=== PATIENT | female | born 1955 | race Caucasian/White ===

== ENCOUNTER 2020-09-13 12:03 | Inpatient (IN) | payer OTHER ==
[2020-09-13] MEDS ORDERED: SODIUM CHLORIDE IV ONE (13:40)
[2020-09-13] MEDS ORDERED: SODIUM CHLORIDE 1,000 ML IV STA (14:39)
[2020-09-13 16:21] LABS: BASO % 0.2 % (0-2.0); EOS % 1.8 % (0-4.5); HEMATOCRIT 36.2 % (32.4-45.2); HEMOGLOBIN 11.8 GM/dL (10.7-15.3); LYMPH % 8.5 % (8-40); MCH 30.2 pg (25.7-33.7); MCHC 32.6 g/dl (32.0-36.0); MEAN CELL VOLUME 92.7 fl (80-96); MEAN PLT VOLUME 8.7 fl (7.5-11.1); NEUT % 72.5 % (42.8-82.8); PLATELET COUNT 305 K/MM3 (134-434); RBC 3.91 M/mm3 (3.60-5.2); RDW 15.3 % (11.6-15.6); WHITE BLOOD COUNT 11.3 K/mm3 (4.0-10.0)
[2020-09-13 16:28] LABS: INR 1.23 (0.83-1.09); PROTHROMBIN TIME (PATIENT) 14.8 SEC (9.7-13.0)
[2020-09-13 16:31] LABS: ACTIVATED PTT 28.9 SECONDS (25.2-36.5)
[2020-09-13 16:35] LABS: POTASSIUM 3.9 mmol/L (3.5-5.1)
[2020-09-13 16:37] LABS: CALCIUM 9.4 mg/dL (8.5-10.1)
[2020-09-13 16:38] LABS: ALBUMIN 2.4 g/dl (3.4-5.0); BLOOD UREA NITROGEN 13.6 mg/dL (7-18)
[2020-09-13 16:41] LABS: CREATININE 0.9 mg/dL (0.55-1.3)
[2020-09-13 16:43] LABS: BILIRUBIN,TOTAL 0.5 mg/dL (0.2-1); TOT PROT 6.9 g/dl (6.4-8.2)
[2020-09-13 16:53] LABS: URINE APPEARANCE CLEAR; URINE BILIRUBIN NEGATIVE (NEGATIVE); URINE COLOR YELLOW; URINE GLUCOSE (UA) NEGATIVE (NEGATIVE); URINE KETONE NEGATIVE (NEGATIVE); URINE LEUK ESTERASE 1+ (NEGATIVE); URINE NITRITE NEGATIVE (NEGATIVE); URINE PROTEIN NEGATIVE (NEGATIVE); URINE UROBILINOGEN 0.2 mg/dL (0.2-1.0)
[2020-09-13] MEDS ORDERED: PIPERACILLIN/TAZOB 3.375 GM 3.375 GM in DEXTROSE 5%-WATER - 50 ML IVPB ONE (17:18)
[2020-09-13] MEDS ORDERED: PIPERACILLIN/TAZOB 3.375 GM 3.375 GM/50 ML BAG IVPB ONE (17:46)
[2020-09-13 18:13] LABS: EPI CELLS 7.52 /uL (0-25.1); URINE BACTERIA 32.4 /uL (0-1359); URINE RBC 24.6 /uL (0-23.9); URINE WBC 36.2 /uL (0-25.8)
[2020-09-13] MEDS ORDERED: ACETAMINOPHEN INJECTION 100 ML IVPB ONE (18:50)
[2020-09-13] MEDS ORDERED: ACETAMINOPHEN 1000 MG/100 ML VIAL (NON FORMULARY) IVPB ONE (18:50)
[2020-09-13] MEDS ORDERED: VANCOMYCIN 1,000 MG in DEXTROSE 5%-WATER - 250 ML IVPB ONE (19:38)
[2020-09-13] MEDS ORDERED: SODIUM CHLORIDE 1,000 ML IV SCH (19:45)
[2020-09-13] MEDS ORDERED: VANCOMYCIN 1 GRAM (PRE-DOCKED) 1,000 MG/250 ML BAG IVPB ONE (20:12)
[2020-09-14] MEDS ORDERED: PIPERACILLIN/TAZOB 3.375 GM 3.375 GM/50 ML BAG IVPB ONE (03:41)
[2020-09-14] MEDS: PIPERACILLIN/TAZOB 3.375 GM 3.375 GM in DEXTROSE 5%-WATER - 50 ML IVPB SCH ×3 (03:51→12:07)
[2020-09-14 06:54] LABS: BASO % 0.2 % (0-2.0); EOS % 2.8 % (0-4.5); HEMATOCRIT 33.5 % (32.4-45.2); HEMOGLOBIN 11.1 GM/dL (10.7-15.3); LYMPH % 7.5 % (8-40); MCH 30.4 pg (25.7-33.7); MCHC 33.1 g/dl (32.0-36.0); MEAN CELL VOLUME 91.8 fl (80-96); MEAN PLT VOLUME 8.7 fl (7.5-11.1); MONO % 18.3 % (3.8-10.2); NEUT % 71.2 % (42.8-82.8); PLATELET COUNT 287 K/MM3 (134-434); RBC 3.65 M/mm3 (3.60-5.2); RDW 15.7 % (11.6-15.6); WHITE BLOOD COUNT 9.9 K/mm3 (4.0-10.0)
[2020-09-14 07:15] LABS: CALCIUM 8.6 mg/dL (8.5-10.1)
[2020-09-14 07:16] LABS: BLOOD UREA NITROGEN 15.2 mg/dL (7-18); MAGNESIUM 2.3 mg/dL (1.8-2.4)
[2020-09-14 07:19] LABS: CREATININE 0.7 mg/dL (0.55-1.3); PHOSPHOROUS 3.6 mg/dL (2.5-4.9)
[2020-09-14 07:20] LABS: BILIRUBIN,TOTAL 0.4 mg/dL (0.2-1); TOT PROT 5.6 g/dl (6.4-8.2)
[2020-09-14 10:01] LABS: ANISOCYTOSIS 0; MACROCYTOSIS 0; PLATELET ESTIMATE NORMAL
[2020-09-14] MEDS: CEFAZOLIN 2 GM/D5W 2 GM/50 ML ML IVPB SCH ×2 (12:00→22:10)
[2020-09-14] MEDS: ENOXAPARIN NA (PORCINE) 40 MG/0.4 ML DISP.SYRIN SQ SCH (12:00)
[2020-09-14] MEDS ORDERED: ENOXAPARIN NA (PORCINE) 40 MG/0.4 ML DISP.SYRIN SQ ONE (12:10)
[2020-09-14] MEDS ORDERED: CEFAZOLIN 2 GM/D5W 2 GM/50 ML ML IVPB ONE (12:10)
[2020-09-14 17:28] VITALS: BMI 36.1
[2020-09-14] MEDS ORDERED: DIVALPROEX NA *ER* EXTEND REL 500 MG TABLET.SA (FP) PO SCH (22:00)
[2020-09-14] MEDS ORDERED: traZODone HCL 100 MG TABLET (FP) PO SCH (22:00)
[2020-09-14] MEDS ORDERED: PATIENT'S OWN MEDICATION (NON-FORMULARY) (Melatonin [Melatonin] 3 MG Tablet) PO SCH (22:00)
[2020-09-14] MEDS ORDERED: MELATONIN 5 MG TABLETS ONE (22:08)
[2020-09-14] MEDS ORDERED: MELATONIN 1 MG TABLET PO ONE (22:08)
[2020-09-14] MEDS ORDERED: PT OWN MED DRAWER 7, Y5N ONE (22:08)
[2020-09-14] MEDS: MELATONIN 5 MG, MELATONIN 1 MG PO SCH (22:10)
[2020-09-14] MEDS: GABAPENTIN 300 MG CAPSULE PO SCH (22:10)
[2020-09-14] MEDS: ATORVASTATIN CA 20 MG TABLET (FP) PO SCH (22:10)
[2020-09-14] MEDS: DIVALPROEX *ER* 500 MG, DIVALPROEX *ER* 250 MG PO SCH (22:11)
[2020-09-14] MEDS: CARBIDOPA/LEVODOPA 25/250 TABLET (FP) PO SCH (22:12)
[2020-09-15] MEDS: CEFAZOLIN 2 GM/D5W 2 GM/50 ML ML IVPB SCH ×3 (05:26→21:09)
[2020-09-15] MEDS: LEVOTHYROXINE NA 125 MCG TABLET (FP) PO SCH (06:24)
[2020-09-15] MEDS: CARBIDOPA/LEVODOPA 25/250 TABLET (FP) PO SCH ×3 (06:24→21:12)
[2020-09-15 07:59] LABS: HEMATOCRIT 34.4 % (32.4-45.2); HEMOGLOBIN 11.2 GM/dL (10.7-15.3); MCHC 32.6 g/dl (32.0-36.0); MEAN CELL VOLUME 92.1 fl (80-96); MEAN PLT VOLUME 8.7 fl (7.5-11.1); PLATELET COUNT 380 K/MM3 (134-434); RBC 3.74 M/mm3 (3.60-5.2); WHITE BLOOD COUNT 9.3 K/mm3 (4.0-10.0)
[2020-09-15 08:15] LABS: POTASSIUM 3.8 mmol/L (3.5-5.1)
[2020-09-15 08:46] LABS: CALCIUM 9.3 mg/dL (8.5-10.1)
[2020-09-15 08:47] LABS: ALBUMIN 2.1 g/dl (3.4-5.0); BLOOD UREA NITROGEN 9.2 mg/dL (7-18); MAGNESIUM 2.3 mg/dL (1.8-2.4)
[2020-09-15 08:50] LABS: CREATININE 0.7 mg/dL (0.55-1.3); PHOSPHOROUS 3.3 mg/dL (2.5-4.9)
[2020-09-15 08:51] LABS: BILIRUBIN,TOTAL 0.3 mg/dL (0.2-1)
[2020-09-15 08:52] LABS: TOT PROT 5.9 g/dl (6.4-8.2)
[2020-09-15] MEDS ORDERED: VENLAFAXINE HCL 150 MG E.R. CAPSULE PO SCH (10:00)
[2020-09-15] MEDS ORDERED: LEVOTHYROXINE NA 125 MCG TABLET (FP) PO SCH (10:00)
[2020-09-15] MEDS: PARoxetine HCL 20 MG TABLET PO SCH (10:43)
[2020-09-15] MEDS: ASPIRIN COATED 81 MG TABLET.EC PO SCH (10:43)
[2020-09-15] MEDS: CLOPIDOGREL BISULFATE 75 MG TABLET (FP) PO SCH (10:43)
[2020-09-15] MEDS: ENOXAPARIN NA (PORCINE) 40 MG/0.4 ML DISP.SYRIN SQ SCH (10:43)
[2020-09-15] MEDS: TOPIRAMATE 25 MG TABLET PO SCH (10:43)
[2020-09-15] MEDS: DIVALPROEX *ER* 500 MG, DIVALPROEX *ER* 250 MG PO SCH ×2 (11:14→21:10)
[2020-09-15] MEDS ORDERED: MELATONIN 5 MG TABLETS ONE (20:29)
[2020-09-15] MEDS ORDERED: MELATONIN 1 MG TABLET PO ONE (20:29)
[2020-09-15] MEDS ORDERED: PT OWN MED DRAWER 7, Y5N ONE (20:31)
[2020-09-15] MEDS: MELATONIN 5 MG, MELATONIN 1 MG PO SCH (21:11)
[2020-09-15] MEDS: ATORVASTATIN CA 20 MG TABLET (FP) PO SCH (21:11)
[2020-09-15] MEDS: GABAPENTIN 300 MG CAPSULE PO SCH (21:12)
[2020-09-16] MEDS: CEFAZOLIN 2 GM/D5W 2 GM/50 ML ML IVPB SCH ×3 (04:15→12:23)
[2020-09-16] MEDS ORDERED: PT OWN MED DRAWER 7, Y5N ONE ×2 (04:50→09:17)
[2020-09-16] MEDS: CARBIDOPA/LEVODOPA 25/250 TABLET (FP) PO SCH ×2 (05:12→13:39)
[2020-09-16] MEDS: LEVOTHYROXINE NA 125 MCG TABLET (FP) PO SCH (06:16)
[2020-09-16 08:39] LABS: HEMATOCRIT 34.2 % (32.4-45.2); HEMOGLOBIN 11.3 GM/dL (10.7-15.3); MCH 30.4 pg (25.7-33.7); MCHC 33.2 g/dl (32.0-36.0); MEAN CELL VOLUME 91.5 fl (80-96); MEAN PLT VOLUME 8.5 fl (7.5-11.1); PLATELET COUNT 416 K/MM3 (134-434); RBC 3.74 M/mm3 (3.60-5.2); RDW 15.8 % (11.6-15.6); WHITE BLOOD COUNT 7.7 K/mm3 (4.0-10.0)
[2020-09-16 08:57] LABS: POTASSIUM 3.6 mmol/L (3.5-5.1)
[2020-09-16 09:08] LABS: ALBUMIN 2.2 g/dl (3.4-5.0); BLOOD UREA NITROGEN 9.3 mg/dL (7-18); CALCIUM 8.7 mg/dL (8.5-10.1)
[2020-09-16 09:11] LABS: CREATININE 0.6 mg/dL (0.55-1.3)
[2020-09-16 09:13] LABS: BILIRUBIN,TOTAL 0.7 mg/dL (0.2-1); TOT PROT 6.2 g/dl (6.4-8.2)
[2020-09-16] MEDS: PARoxetine HCL 20 MG TABLET PO SCH (09:20)
[2020-09-16] MEDS: CLOPIDOGREL BISULFATE 75 MG TABLET (FP) PO SCH (09:21)
[2020-09-16] MEDS: ENOXAPARIN NA (PORCINE) 40 MG/0.4 ML DISP.SYRIN SQ SCH (09:21)
[2020-09-16] MEDS: ASPIRIN COATED 81 MG TABLET.EC PO SCH (09:21)
[2020-09-16] MEDS: DIVALPROEX *ER* 500 MG, DIVALPROEX *ER* 250 MG PO SCH (09:21)
[2020-09-16] MEDS: TOPIRAMATE 25 MG TABLET PO SCH (09:21)
[2020-09-16 14:11] VITALS: BP 155/82; PULSE 85; TEMP 97.8
== END 2020-09-16 21:30 | DRG 871 ==
LOC: JER 12:03 → JERBED 18:04 → J8W 09-14 15:25
PROVIDERS: ADMIT Internal Medicine; ATTEND Internal Medicine
DX: A41.9 Sepsis, unspecified organism (principal); G93.41 Metabolic encephalopathy; L03.116 Cellulitis of left lower limb; L03.115 Cellulitis of right lower limb; I11.0 Hypertensive heart disease with heart failure; I50.9 Heart failure, unspecified; I73.9 Peripheral vascular disease, unspecified; E03.9 Hypothyroidism, unspecified; E66.01 Morbid (severe) obesity due to excess calories; Z68.35 Body mass index [BMI] 35.0-35.9, adult; G20 Parkinson's disease; I87.2 Venous insufficiency (chronic) (peripheral); R94.5 Abnormal results of liver function studies; F32.9 Major depressive disorder, single episode, unspecified; F25.9 Schizoaffective disorder, unspecified
CPT/HCPCS: 36415; 70450-TC; 71045-TC-FY; 71250-TC; 74176-TC; 76705-TC; 76937; 80053; 80164; 81003; 82962; 83605; 83735; 84100; 84484; 85025; 85027; 85610; 85730; 87040; 87081; 87086; 93005; 93010; 97116-GP; 97161-GP; 99285-25; C9803; J0131; U0003

== ENCOUNTER 2021-02-01 20:53 | Emergency (ER) | payer OTHER ==
[2021-02-01] MEDS ORDERED: RAPID SEQUENCE INTUBATION KIT NR ONE (20:59)
[2021-02-01 21:27] VITALS: BMI 29.4
[2021-02-01 22:07] LABS: BASO % 0.7 % (0-2.0); EOS % 0.1 % (0-4.5); HEMATOCRIT 31.8 % (32.4-45.2); HEMOGLOBIN 10.4 GM/dL (10.7-15.3); LYMPH % 21.3 % (8-40); MCH 29.1 pg (25.7-33.7); MCHC 32.7 g/dl (32.0-36.0); MEAN PLT VOLUME 9.8 fl (7.5-11.1); MONO % 11.8 % (3.8-10.2); NEUT % 66.1 % (42.8-82.8); PLATELET COUNT 183 10^3/uL (134-434); RBC 3.57 M/mm3 (3.60-5.2); RDW 17.7 % (11.6-15.6); WHITE BLOOD COUNT 8.5 K/mm3 (4.0-10.0)
[2021-02-01 22:14] LABS: INR 1.01 (0.83-1.09); PROTHROMBIN TIME (PATIENT) 12.2 SEC (9.7-13.0)
[2021-02-01] MEDS ORDERED: TRANEXAMIC ACID 1000 MG/10 ML VIAL IVPUSH ONE (22:15)
[2021-02-01] MEDS ORDERED: DESMOPRESSIN ACETATE 4 MCG/ML AMP IVPB ONE (22:15)
[2021-02-01 22:17] LABS: ACTIVATED PTT 26.7 SECONDS (25.2-36.5)
[2021-02-01 22:21] LABS: CHLORIDE 106 mmol/L (98-107); SODIUM 138 mmol/L (136-145)
[2021-02-01 22:23] LABS: CALCIUM 8.4 mg/dL (8.5-10.1)
[2021-02-01 22:24] LABS: ANION GAP 11 MMOL/L (8-16); BLOOD UREA NITROGEN 10.1 mg/dL (7-18); CO2 22 mmol/L (21-32); GLUCOSE,RANDOM 128 mg/dL (74-106); MAGNESIUM 2.1 mg/dL (1.8-2.4)
[2021-02-01 22:27] LABS: CREATININE 0.9 mg/dL (0.55-1.3); PHOSPHOROUS 3.7 mg/dL (2.5-4.9); SGOT/AST 16 U/L (15-37)
[2021-02-01 22:28] LABS: BILIRUBIN,TOTAL 0.2 mg/dL (0.2-1); TOT PROT 6.2 g/dl (6.4-8.2)
[2021-02-01 22:34] LABS: LACTIC ACID 3.1 mmol/L (0.4-2.0)
[2021-02-01 22:38] LABS: ALK PHOS 56 U/L (45-117); SGPT/ALT 9 U/L (13-61)
[2021-02-01] MEDS ORDERED: TRANEXAMIC ACID 1000 MG/10 ML VIAL ONE (22:42)
[2021-02-01] MEDS ORDERED: ROCURONIUM BROMIDE 50 MG/5 ML VIAL IV ONE (22:50)
[2021-02-01] MEDS ORDERED: ETOMIDATE 40 MG/20 ML VIAL IVPUSH ONE (22:50)
[2021-02-01] MEDS ORDERED: MANNITOL 25% 12.5 GM/50 ML VIAL IVPB ONE ×2 (23:27→23:45)
[2021-02-01 23:55] LABS: URINE APPEARANCE CLEAR; URINE BILIRUBIN NEGATIVE (NEGATIVE); URINE COLOR DK YELLOW; URINE GLUCOSE (UA) NEGATIVE (NEGATIVE); URINE KETONE TRACE (NEGATIVE); URINE LEUK ESTERASE NEGATIVE (NEGATIVE); URINE NITRITE NEGATIVE (NEGATIVE); URINE PROTEIN NEGATIVE (NEGATIVE); URINE UROBILINOGEN 0.2 mg/dL (0.2-1.0)
[2021-02-02 00:29] VITALS: TEMP 97.9
[2021-02-02 00:47] VITALS: BP 102/63; PULSE 58
== END 2021-02-02 | disposition short-term general hospital (02) ==
LOC: JER 20:53
DX: S06.5X9A Traumatic subdural hemorrhage with loss of consciousness of unspecified duration, initial encounter (principal); W19.XXXA Unspecified fall, initial encounter; Y92.9 Unspecified place or not applicable
CPT/HCPCS: 36415; 36430; 36511; 70450-TC; 70486-TC; 71045-TC-FY; 71260-TC; 72125-TC; 74177-TC; 80053; 81003; 82550; 83605; 83735; 83880; 84100; 84439; 84443; 84481; 84484; 85025; 85610; 85730; 86850; 86900; 86901; 87086; 93005; 93010; 99291; 99292; C9803; J2597; P9034; P9038; Q9967; U0003; U0005